=== PATIENT | male | born 1955 | race Caucasian/White ===

== ENCOUNTER 2025-03-19 07:35 | Emergency (ER) | payer OTHER, MEDICAID ==
[2025-03-19 08:34] LABS: Glucose, Urine (Dipstick) >=1000 mg/dL (Negative); Leukocyte 500 (Negative); Protein, Urine (Dipstick) 30 mg/dl (Neg-Trace); Specific Gravity, Urine 1.010 (1.005-1.030)
[2025-03-19 09:06] LABS: Bacteria/HPF 1+ HPF (None Seen); CAUTI Indications for Culture Pelvic or flank pain; RBC/HPF Greater than 50 HPF (0-3); WBC/HPF Greater Than 50 HPF (0-3)
[2025-03-19 09:07] LABS: Urine Culture Reflex Yes Yes
== END 2025-03-19 09:39 | disposition home or self-care (01) ==
LOC: CSHERS 07:35
DX: N39.0 Urinary tract infection, site not specified (principal); N40.1 Benign prostatic hyperplasia with lower urinary tract symptoms; R35.0 Frequency of micturition; E11.9 Type 2 diabetes mellitus without complications; I48.91 Unspecified atrial fibrillation; I25.2 Old myocardial infarction; I10 Essential (primary) hypertension
CPT/HCPCS: 81001; 87086; 99283

== ENCOUNTER 2025-05-20 15:29 | Emergency (ER) | payer OTHER, MEDICAID ==
[2025-05-20 16:16] LABS: Glucose, Urine (Dipstick) 100 mg/dL (Negative); Leukocyte 500 (Negative); Protein, Urine (Dipstick) 100 mg/dl (Neg-Trace); Specific Gravity, Urine 1.020 (1.005-1.030)
[2025-05-20 16:42] LABS: CAUTI Indications for Culture Pelvic or flank pain; WBC/HPF Greater than 50 HPF (0-3)
[2025-05-20 16:43] LABS: Bacteria/HPF 3+ HPF (None Seen); Yeast-Budding 3+ HPF (None Seen)
[2025-05-20 16:44] LABS: Mucous/LPF 1+ LPF (<2+)
[2025-05-20 16:47] LABS: Urine Culture Reflex Yes Yes
[2025-05-20] MEDS ORDERED: Fluconazole 100 MG TAB PO SCH (17:45)
== END 2025-05-20 17:48 | disposition home or self-care (01) ==
LOC: CSHERS 15:29
DX: N39.0 Urinary tract infection, site not specified (principal); E11.9 Type 2 diabetes mellitus without complications; I10 Essential (primary) hypertension; I25.2 Old myocardial infarction; Z87.891 Personal history of nicotine dependence
CPT/HCPCS: 81001; 87077; 87086; 99283